=== PATIENT | female | born 2000 | race African-American/Black ===

== ENCOUNTER 2022-10-21 09:38 | Emergency (ER) | payer OTHER ==
[~2022-10-21] VITALS: Ht 162.6 cm; Wt 64.0 kg
[2022-10-21] MEDS ORDERED: IBUP200C25 PO (09:53)
[2022-10-21 11:29] LABS: APPEARANCE, URINE HAZY (CLEAR); BACTERIA, URINE AUTO NEGATIVE (NEGATIVE); BILIRUBIN, URINE AUTO NEGATIVE (NEGATIVE); BLOOD, URINE BLOOD 2+ (NEGATIVE); COLOR, URINE YELLOW (YELLOW); GLUCOSE, URINE (UA) AUTO NEGATIVE (NEGATIVE); KETONE, URINE AUTO TRACE mg/dL (NEGATIVE); LEUKOCYTE ESTERASE, URINE AUTO 1+ (NEGATIVE); MUCUS, URINE SMALL (NEGATIVE); NITRITE, URINE AUTO NEGATIVE (NEGATIVE); PROTEIN, URINE AUTO NEGATIVE (NEGATIVE); RBC, URINE AUTO 3 /HPF (0-3); SPECIFIC GRAVITY URINE AUTO 1.015 (1.002-1.035); SQUAMOUS EPITHELIAL CELL UR AU 2 /HPF (0-6); UROBILINOGEN, URINE AUTO 0.2 mg/dL (0.0-2.0); WBC, URINE AUTO 14 /HPF (0-3)
[2022-10-21 11:56] LABS: ALBUMIN 3.7 G/DL (3.2-5.2); ALKALINE PHOSPHATASE 66 U/L (46-116); ALT/SGPT < 9 U/L (7.0-40); AST/SGOT 8 U/L (<34); BILIRUBIN,DIRECT 0.2 MG/DL (<0.4); BILIRUBIN,TOTAL 0.4 MG/DL (0.3-1.2); TOTAL PROTEIN 7.6 G/DL (5.7-8.2)
[2022-10-21 12:00] LABS: HEPATITIS B SURFACE ANTIBODY POSITIVE (POSITIVE)
[2022-10-21 12:26] LABS: HIV 1&2 SCREEN NEGATIVE (NEGATIVE)
[2022-10-21 12:33] LABS: HEPATITIS C VIRUS ABY INDEX 0.19 INDEX (<0.8)
[2022-10-21 12:45] LABS: HCG, SERUM QUALITATIVE NEGATIVE (NEGATIVE)
[2022-10-21 12:56] LABS: GC DNA AMPLIFICATION NEGATIVE (NEGATIVE)
[2022-10-21] MEDS ORDERED: valACYclovir HCL 500 MG TAB PO ONE (13:45)
[2022-10-21] MEDS ORDERED: VALA1TAB5 PO (14:08)
[2022-10-21] MEDS ORDERED: IBUPROFEN 600MG TAB PO ONE (14:15)
[2022-10-21 14:19] VITALS: BP 115/71; TEMP 98; O2SAT 99
== END 2022-10-21 14:34 | disposition home or self-care (01) ==
LOC: M ED 09:38
DX: B00.9 Herpesviral infection, unspecified (principal); T76.21XA Adult sexual abuse, suspected, initial encounter; Z88.1 Allergy status to other antibiotic agents

== ENCOUNTER 2022-10-31 16:16 | Emergency (ER) | payer OTHER ==
[~2022-10-31] VITALS: Ht 162.6 cm; Wt 65.2 kg
[~2022-10-31 16:16] MED LIST: IBUP200C25 PO; VALA1TAB5 PO
[2022-10-31] MEDS ORDERED: FERR1TAB8 PO (16:37)
[2022-10-31 18:23] VITALS: BP 124/72; TEMP 97.7; O2SAT 100
[2022-10-31 19:27] LABS: BASO # 0.1 10^3/uL (0.0-0.2); BASO % 0.6 % (0.0-1.0); EOS # 0.1 10^3/uL (0.0-0.5); EOS % 0.9 % (0.0-3.0); HEMATOCRIT 36.5 % (36.0-47.0); LYMPH # 2.9 10^3/uL (1.5-5.0); LYMPH % 35.7 % (24.0-44.0); MEAN CORPUSCULAR HEMOGLOBIN 29.1 pg (27.0-33.0); MEAN CORPUSCULAR HGB CONC 32.9 g/dl (32.0-36.5); MEAN CORPUSCULAR VOLUME 88.4 fl (80.0-96.0); MONO # 0.5 10^3/uL (0.0-0.8); MONO % 5.9 % (2.0-8.0); NEUTROPHILS # 4.7 10^3/uL (1.5-8.5); NEUTROPHILS % 56.8 % (36.0-66.0); PLATELET COUNT, AUTOMATED 257 10^3/uL (150-450); RED BLOOD COUNT 4.13 10^6/uL (4.00-5.40); WHITE BLOOD COUNT 8.2 10^3/uL (4.0-10.0)
[2022-10-31 20:46] LABS: GC DNA AMPLIFICATION NEGATIVE (NEGATIVE)
[2022-10-31] MEDS ORDERED: CIPROFLOXACIN 500MG TABLET PO ONE (20:50)
[2022-10-31] MEDS ORDERED: CIPR-249 PO (20:54)
== END 2022-10-31 21:12 | disposition home or self-care (01) ==
LOC: M ED 16:16
DX: N39.0 Urinary tract infection, site not specified (principal); B00.9 Herpesviral infection, unspecified; Z88.1 Allergy status to other antibiotic agents; Z79.899 Other long term (current) drug therapy; Z79.2 Long term (current) use of antibiotics